=== PATIENT | female | born 1945 | race Caucasian/White ===

== ENCOUNTER 2024-01-28 11:34 | Inpatient (IN) | payer MEDICARE, OTHER ==
[~2024-01-28] VITALS: Ht 177.8 cm; Wt 74.0 kg
[2024-01-28] MEDS ORDERED: METO100ER PO (11:45)
[2024-01-28] MEDS ORDERED: AMLODIPINE BESYL5 MG PO (11:45)
[2024-01-28] MEDS ORDERED: ZESTRIL40 M1 PO (11:46)
[2024-01-28] MEDS ORDERED: NS 1,000 ML IV SCH ×3 (11:55→15:15)
[2024-01-28 13:37] LABS: BASOPHILS ABSOLUTE AUTO 0.03 K/mm3 (0.00-0.23); BASOPHILS PERCENT AUTO 0 % (0-2); EOSINOPHILS PERCENT AUTO 0 % (0-6); Hematocrit 43.4 % (33.0-51.0); Hemoglobin 14.4 g/dL (11.5-16.0); IMMATURE GRAN ABSOLUTE AUTO 0.15 K/mm3 (0.00-0.10); IMMATURE GRAN PERCENT AUTO 1 % (0-1); LYMPHOCYTES ABSOLUTE AUTO 3.04 K/mm3 (0.84-5.20); LYMPHOCYTES PERCENT AUTO 15 % (21-46); MONOCYTES ABSOLUTE AUTO 2.23 K/mm3 (0.16-1.47); MONOCYTES PERCENT AUTO 11 % (4-13); Mean Corpuscular HGB Conc 33.2 g/dL (31.5-36.5); Mean Corpuscular Volume 84 fL (80-100); Mean Platelet Volume 11.6 fL (9.1-12.4); NEUTROPHILS ABSOLUTE AUTO 14.28 K/mm3 (1.96-9.15); NEUTROPHILS PERCENT AUTO 72 % (41-73); Platelet Count 399 K/mm3 (150-400); RDW Coefficient Variation 12.7 % (11.7-14.2); RDW Standard Deviation 39.4 fL (35.1-46.3); Red Blood Cell Count 5.15 M/mm3 (3.80-5.20); White Blood Cell Count 19.73 K/mm3 (4.00-11.30)
[2024-01-28 13:45] LABS: Source, Urine Clean Catch
[2024-01-28 13:48] LABS: Appearance, Urine Cloudy (Clear); Blood, Urine 5+ (Neg); Color, Urine Yellow (P-Yellow); Glucose Qualitative, Urine Neg (Neg); Ketones, Urine Neg (Neg); Leukocyte Esterase, Urine 3+ (Neg); Nitrite, Urine Pos (Neg); Protein, Urine 3+ (Neg); Specific Gravity, Urine 1.015 (1.003-1.022); Urobilinogen, Urine 3+ (Normal)
[2024-01-28 13:50] LABS: Albumin, Blood 2.9 g/dL (3.4-5.0); Albumin/Globulin Ratio 0.6 (0.8-1.8); Bilirubin, Total 1.6 mg/dL (0.1-1.0); Bun/Creatinine Ratio 25.4 (12.0-20.0); Calcium, Blood 10.3 mg/dL (8.5-10.1); Creatinine, Blood 1.38 mg/dL (0.40-1.00); Potassium, Blood 3.2 mmol/L (3.5-5.5); Total Protein, Blood 7.9 g/dL (6.4-8.2)
[2024-01-28 14:02] LABS: Bilirubin, Urine 1+ (Neg)
[2024-01-28] MEDS ORDERED: CefTRIAXone Sodium 1,000 MG in NS 100 ML IV ONE (14:15)
[2024-01-28 14:24] LABS: White Blood Cells, Urine TNTC /hpf (0-5)
[2024-01-28 14:25] LABS: Bacteria Many /hpf; Red Blood Cells, Urine 0-2 /hpf (0-2); Squamous Epithelial Cells Rare /hpf (Few)
[2024-01-28] MEDS ORDERED: Acetaminophen 325 MG TABLET PO PRN (15:15)
[2024-01-28] MEDS ORDERED: Ondansetron HCl 2 MG / ML 2ML Vial IV PRN (15:55)
--- NOTE | 2024-01-28 18:23 | NUR ---
PT ARRIVED TO ROOM AT 1740 VIA CART. AOX3 AND COOPERATIVE OF CARE. PT CONTINUES TO FEEL NAUSEATED AND REFUSED DINNER. PT HAS UPPER ABDOMINAL PAIN PT HAS PERWICK IN PLACE. CALL LIGHT WITHIN REACH.
[2024-01-28 19:53] VITALS: BP 154/64
[2024-01-28] MEDS ORDERED: Lactobacil 2-S.Thermo-Bifido 1 1 Cap PO SCH (21:00)
[2024-01-29] MEDS ORDERED: Heparin Sodium,Porcine 5,000 UNIT/0.5 ML SDV SC SCH
[2024-01-29 03:23] VITALS: BP 149/61
[2024-01-29 05:33] LABS: BASOPHILS ABSOLUTE AUTO 0.04 K/mm3 (0.00-0.23); BASOPHILS PERCENT AUTO 0 % (0-2); EOSINOPHILS ABSOLUTE AUTO 0.01 K/mm3 (0.00-0.68); EOSINOPHILS PERCENT AUTO 0 % (0-6); Hematocrit 39.6 % (33.0-51.0); Hemoglobin 12.9 g/dL (11.5-16.0); IMMATURE GRAN PERCENT AUTO 1 % (0-1); LYMPHOCYTES ABSOLUTE AUTO 2.47 K/mm3 (0.84-5.20); LYMPHOCYTES PERCENT AUTO 17 % (21-46); MONOCYTES ABSOLUTE AUTO 2.03 K/mm3 (0.16-1.47); MONOCYTES PERCENT AUTO 14 % (4-13); Mean Corpuscular HGB 27.9 pg (26.0-34.0); Mean Corpuscular HGB Conc 32.6 g/dL (31.5-36.5); Mean Corpuscular Volume 86 fL (80-100); Mean Platelet Volume 11.1 fL (9.1-12.4); NEUTROPHILS PERCENT AUTO 69 % (41-73); Platelet Count 358 K/mm3 (150-400); RDW Coefficient Variation 12.9 % (11.7-14.2); RDW Standard Deviation 40.7 fL (35.1-46.3); Red Blood Cell Count 4.62 M/mm3 (3.80-5.20); White Blood Cell Count 14.95 K/mm3 (4.00-11.30)
[2024-01-29 06:14] LABS: Albumin, Blood 2.2 g/dL (3.4-5.0); Albumin/Globulin Ratio 0.5 (0.8-1.8); Bilirubin, Total 0.9 mg/dL (0.1-1.0); Bun/Creatinine Ratio 25.2 (12.0-20.0); Calcium, Blood 8.7 mg/dL (8.5-10.1); Creatinine, Blood 1.03 mg/dL (0.40-1.00); Globulin, Blood 4.2 g/dL (2.2-4.0); Total Protein, Blood 6.4 g/dL (6.4-8.2)
[2024-01-29 07:28] VITALS: BP 132/70
[2024-01-29 08:00] VITALS: BP 150/76
--- NOTE | 2024-01-29 08:16 | NUR ---
a/o x4, no c/o pain,no c/o n/v pt on tele, tolerated abx adminsitration, tc reieved from labs at 0725 regarding critical lab, gram pos bacilli blood culture am nurse aware and f/u contacted hospital specialist. Fall precautiions in place, call light w/n reach.
[2024-01-29] MEDS ORDERED: CefTRIAXone Sodium 1,000 MG in NS 100 ML IV SCH (09:00)
[2024-01-29] MEDS ORDERED: Enoxaparin 40 MG/0.4 ML SYR SC SCH (09:00)
[2024-01-29] MEDS ORDERED: AmLODIPine Besylate 5 MG Tab PO SCH (09:00)
[2024-01-29] MEDS ORDERED: CefTRIAXone Sodium 2,000 MG in NS 100 ML IV SCH (09:00)
[2024-01-29] MEDS ORDERED: Potassium Chloride 20 MEQ TabCR PO ONE (09:00)
[2024-01-29] MEDS ORDERED: Metoprolol Succinate 50 MG TABCR PO SCH (09:00)
[2024-01-29 10:21] VITALS: BP 135/90
--- NOTE | 2024-01-29 17:29 | NUR ---
SHIFT SUMMARY A/OX4, SHEEBA REMOVED THIS SHIFT, PATIENT TOLERATING UP TO BATHROOM WELL. ABLE TO AMBULATE IN ROOM AND UP TO CHAIR FOR SOME MEALS. C/O HIP STIFFNESS AND MILD DIZZINESS WHEN FIRST SITTING UPRIGHT, RESOLVED. BLOOD CX BOTTLES X2 GROWING GRAM NEG BACILLI, DOC MADE AWARE, RECEIVING ROCEPHIN. BED ALARM ON, ABLE TO MAKE NEEDS KNOWN, CALL LIGHT IN REACH, CARES ONGOING.
[2024-01-29 19:18] VITALS: BP 170/76
[2024-01-30 05:18] LABS: BASOPHILS ABSOLUTE AUTO 0.04 K/mm3 (0.00-0.23); BASOPHILS PERCENT AUTO 0 % (0-2); EOSINOPHILS ABSOLUTE AUTO 0.06 K/mm3 (0.00-0.68); EOSINOPHILS PERCENT AUTO 0 % (0-6); Hematocrit 38.8 % (33.0-51.0); Hemoglobin 12.9 g/dL (11.5-16.0); IMMATURE GRAN ABSOLUTE AUTO 0.18 K/mm3 (0.00-0.10); IMMATURE GRAN PERCENT AUTO 1 % (0-1); LYMPHOCYTES ABSOLUTE AUTO 2.84 K/mm3 (0.84-5.20); LYMPHOCYTES PERCENT AUTO 19 % (21-46); MONOCYTES ABSOLUTE AUTO 1.87 K/mm3 (0.16-1.47); MONOCYTES PERCENT AUTO 13 % (4-13); Mean Corpuscular HGB Conc 33.2 g/dL (31.5-36.5); Mean Corpuscular Volume 84 fL (80-100); Mean Platelet Volume 11.1 fL (9.1-12.4); NEUTROPHILS ABSOLUTE AUTO 9.83 K/mm3 (1.96-9.15); NEUTROPHILS PERCENT AUTO 66 % (41-73); Platelet Count 426 K/mm3 (150-400); RDW Coefficient Variation 12.6 % (11.7-14.2); RDW Standard Deviation 38.5 fL (35.1-46.3); Red Blood Cell Count 4.61 M/mm3 (3.80-5.20); White Blood Cell Count 14.82 K/mm3 (4.00-11.30)
[2024-01-30 05:41] LABS: Bun/Creatinine Ratio 22.3 (12.0-20.0); Calcium, Blood 8.9 mg/dL (8.5-10.1); Creatinine, Blood 0.85 mg/dL (0.40-1.00); Potassium, Blood 2.8 mmol/L (3.5-5.5)
[2024-01-30] MEDS ORDERED: Potassium Chloride 40 MEQ in NS 250 ML IV ONE (06:35)
[2024-01-30] MEDS ORDERED: Potassium Chloride 20 MEQ TabCR PO ONE (07:00)
[2024-01-30 07:38] VITALS: BP 165/70
[2024-01-30] MEDS ORDERED: Polyethylene Glycol 3350 17 gm PO ONE (09:20)
[2024-01-30] MEDS ORDERED: VISBIOME 112.51 EACH PO (15:48)
[2024-01-30] MEDS ORDERED: POTCHL20ER PO (15:49)
[2024-01-30] MEDS ORDERED: SULTRIDS PO (15:50)
--- NOTE | 2024-01-30 17:51 | NUR ---
DISCHARGE SUMMARY PATIENT DISCHARGED WITH DAUGHTER TO DRIVE, IV REMOVED PRIOR WITH NO COMPLICATION. DISCHARGE PACKET GIVEN AND REVIEWED, PT ABLE TO TEACHBACK, VERBALIZED UNDERSTANDING. MEDS FAXED TO [facility]. SKIN INTACT ON DISCHARGE. HAD 2 BOWEL MOVEMENTS PRIOR TO DISCHARGE, VOIDING WELL. A/O X4
== END 2024-01-30 17:21 | disposition home or self-care (01) | DRG 872 ==
LOC: ER 11:34 → MEDS 11:35
PROVIDERS: Emergency Medicine; Student in an Organized Health Care Education/Training Program; ADMIT Internal Medicine
DX: A41.50 Gram-negative sepsis, unspecified (principal); N39.0 Urinary tract infection, site not specified; N17.9 Acute kidney failure, unspecified; I10 Essential (primary) hypertension; I25.10 Atherosclerotic heart disease of native coronary artery without angina pectoris; F41.9 Anxiety disorder, unspecified; F32.A Depression, unspecified; R33.9 Retention of urine, unspecified; J43.9 Emphysema, unspecified; Z87.891 Personal history of nicotine dependence
CPT/HCPCS: 36415; 71046; 80048; 80053; 81001; 83605; 83735; 85025; 87040; 87077; 87086; 87186; 93005; 93010; 96361; 96365; 96372; 96375; 99285-25; A9270; G0378; J0696; J1644; J2405; J3480; J7030; J7050